=== PATIENT | male | born 1940 | race Caucasian/White ===

== ENCOUNTER 2025-06-08 04:13 | Emergency (ER) | payer MEDICARE, SELFPAY ==
--- NOTE | 2025-06-08 04:15 | ED.GENMED ---
History of Present Illness
General
Chief Complaint: Male Genito-Urinary Symptoms
Time Seen by Provider: 06/08/25 04:15
History of Present Illness
History of Present Illness:
PAST MEDICAL HISTORY AND REVIEW OF OLD RECORDS
- The patient has a history of high blood pressure and prostate cancer.
CHIEF COMPLAINT(S)
Penile pain and difficulty urinating.
HISTORY OF PRESENT ILLNESS
The patient is an 84-year-old male with a known history of prostate cancer, currently presenting with penile pain and difficulty urinating. The patient reports having had two urinary catheters placed. The initial catheter was inserted on December
due to obstructive uropathy related to prostate cancer. The patient experienced increasing difficulty with urination over the years, attributed to treatments for prostate cancer. The first catheter was removed 12 days after its placement,
resulting in significant urinary retention, necessitating a return to the emergency department where a new catheter was inserted. The current catheter, placed in May, has been associated with intermittent pain and an inadequate sense of urinary
drainage. Despite a feeling of bladder fullness, urine is draining into the bag, but not as expected. The patient also reports having experienced blood in the urine when the initial catheter was removed but not currently.
The patients perception of consistent bladder fullness and discomfort suggests possible catheter malfunction or obstruction, potentially due to clot formation or swelling.
The patient has been taking daily aspirin for atrial fibrillation and hypertension. He denies being on any other anticoagulants like apixaban.
PAST MEDICAL AND SURGICAL HISTORY
Prostate cancer with history of associated urinary obstruction.
CHRONIC MEDICAL CONDITIONS SIGNIFICANTLY AFFECTING CARE
- Prostate cancer
- Atrial fibrillation
- Hypertension
MEDICATIONS
- Low-dose aspirin (baby aspirin)
PHYSICAL EXAM
General: Alert, no acute distress. Appears fairly comfortable
Skin: Warm, dry.
Head: Normocephalic, atraumatic.
Neck: Supple, trachea midline.
Eye, Ears, Nose, Mouth, and Throat: Oral mucosa moist.
Cardiovascular: Normal peripheral perfusion, No edema.
Respiratory: Respirations are non-labored.
Gastrointestinal: Abdomen nondistended. Mild suprapubic tenderness
Back: Normal range of motion, Normal alignment.
Musculoskeletal: Normal range of motion, normal strength.
Neurological: Alert and oriented to person, place, time, and situation, No focal neurological deficit observed.
Psychiatric: Cooperative, appropriate mood & affect.
PROBLEM LIST
Acute Problems:
- Penile pain
- Difficulty urinating
Chronic Problems:
- Prostate cancer
- Atrial fibrillation
- Hypertension
PLAN
1. Perform a bladder scan to assess for urinary retention. This showed 336 mL despite having a Balderrama catheter.
2. Replace the current catheter to ensure it is functioning correctly and assess for any obstruction or clotting.
3. Monitor urine output and assess for any recurrent pain or blood in the urine.
DIFFERENTIAL DIAGNOSIS
The Differential Diagnosis includes, in no particular order and is not limited to:
1. Catheter malfunction or obstruction
2. Urinary tract infection
3. Bladder outlet obstruction
4. Hematuria secondary to catheter changes
5. Prostatitis
6. Urethral stricture
7. Bladder stone
8. Clot retention
9. Local trauma or irritation from catheter
10. Progression of prostate cancer
SUMMARY OF ENCOUNTER
The patient, an 84-year-old male with a history of prostate cancer, presented with penile pain and difficulty urinating, which are consistent issues since having two urinary catheters placed. The pain increased with the insertion of the second
catheter, worsening until the initial catheter was removed. There was a concern whether there was a malfunction or obstruction with the catheter as the urine appearance was darker which could be attributed to the patient consuming dark juice. A
bladder scan was planned to check for complications, and it was presumed there might be an issue with the catheter, as catheter issues are common. After examination and discussions, the patient was deemed suitable for discharge. While present in the
emergency department, the patient did not experience pain and did not require hospital admission.
DISPOSITION
Discharge.
ASSESSMENT
The patient likely has penile pain and urinary difficulties due to catheter malfunction or obstruction, potentially related to prostate cancer, which is a common problem with catheters. No acute issues were identified that required hospitalization
at the time of this evaluation.
PLAN
1. Discharge the patient from the emergency department.
2. Advise the patient to monitor urinary output and report any pain, blood in urine, or worsening symptoms.
3. Consider consulting with the patients urologist for ongoing management of prostate cancer and catheter issues.
PATIENT EDUCATION AND COUNSELING
The patient was informed about the potential for catheter malfunction or obstruction and the need to monitor for any changes in symptoms. Information regarding catheters and expected urine drainage was discussed.
FOLLOW-UP INSTRUCTIONS
The patient should follow up with his urologist to discuss the catheter and prostate cancer management further. He was advised to seek medical attention if he experiences persistent pain, difficulty urinating, or other concerning symptoms.
MEDICAL DECISION MAKING
1. Number and Complexity of Problems Addressed: Chronic conditions affecting care: Prostate cancer, which may be related to urinary difficulties. Differential diagnosis includes:
- Catheter malfunction or obstruction
- Bladder outlet obstruction
- Urinary tract infection
- Hematuria due to catheter changes
2. Data:
- Category 1: Clinical information obtained and bladder scan was planned but not detailed in the discharge conversation.
3. Risk:
Prescription medication management ongoing, with low-dose aspirin for other chronic conditions. Given the patients stable condition, discharge was deemed appropriate with close follow-up.
DIAGNOSIS
Penile pain and urinary difficulty possibly due to catheter issues (ICD-10: N39.0), and underlying prostate cancer (ICD-10: C61).
On reassessment at 5:10 AM, the patient feels markedly improved after new Balderrama catheter placed. He will call his son for a ride in the next hour or so.
Phy Exam
Physical Exam
Physical Exam:
See HPI
Course
Orders/Labs/Results
Orders:
Orders
06/08/25 04:27
Balderrama Placement- Treatment ONCE
Reason for insertion: Acute Retention
Vital Signs
Initial and Last Documented VS:
Initial Vital Signs
BP
154/61
06/08/25 04:31
Last Documented Vital Signs
Temp Pulse Resp BP Pulse Ox
36.6 C 58 18 154/61 89
06/08/25 04:32 06/08/25 04:32 06/08/25 04:32 06/08/25 04:32 06/08/25 04:32
*Pulse Oximetry
Patient hypoxic: no
*Critical Care Note
Total Time (30-74mins, 75-104mins- exclusive of procedures): Not Applicable
ED Attending Note
-
Portions of this chart may have been created with voice recognition software.� Occasional wrong word or��sound alike� substitutions may have occurred due to the inherent limitations of voice recognition software.
Discharge Plan
Departure
Patient Disposition: Home (Routine Discharge)
Date of Disposition: 06/08/25
Time of Disposition: 05:11
Patient with high blood pressure during this ER visit?: Yes
Discharge Problem:
Complication, blocked Balderrama catheter
Instructions: How to Care for Your Balderrama Catheter, Male, Urinary Retention (DC)
Activity Restrictions/Additional Instructions:
When we initially did the bladder scan, you had about 336 mL of urine in the bladder despite having a Balderrama catheter. We placed a new catheter and you drained over 300 mL of urine. Follow-up with your urologist return here if worse or other
concerns.
Interventions
Interventions:
*Risk Screen - Suicide Last Done: 06/08/25 04:16
*General Assessment Last Done: 06/08/25 04:16
*Neglect/Abuse Screening Last Done: 06/08/25 04:16
*ED- Fall Risk Assessment Last Done: 06/08/25 04:16
*ED COVID-19 Vaccine History Last Done: 06/08/25 04:16
ED-Male Genitourinary Assessment Last Done: 06/08/25 04:39
Discharge Date and Time
Print Language: VINCENTIAN
[2025-06-08 04:16] VITALS: BMI 30.3
[2025-06-08 04:31] VITALS: BP 154/61
[2025-06-08 04:32] VITALS: BP 154/61
[2025-06-08 05:00] VITALS: BP 119/52
[2025-06-08 06:00] VITALS: BP 128/53
== END 2025-06-08 06:34 | disposition home or self-care (01) ==
LOC: EMR 04:13
PROVIDERS: EMERGENCY PHYSICIAN Emergency Medicine; FAMILY PHYSICIAN Internal Medicine
DX: T83.098A Other mechanical complication of other urinary catheter, initial encounter (principal); Y73.1 Therapeutic (nonsurgical) and rehabilitative gastroenterology and urology devices associated with adverse incidents; Y84.8 Other medical procedures as the cause of abnormal reaction of the patient, or of later complication, without mention of misadventure at the time of the procedure; C61 Malignant neoplasm of prostate; I48.91 Unspecified atrial fibrillation; I10 Essential (primary) hypertension; Z79.82 Long term (current) use of aspirin
CPT/HCPCS: 99283; 51798; 51702

== ENCOUNTER 2025-06-13 09:46 | Emergency (ER) | payer MEDICARE, OTHER, SELFPAY ==
[2025-06-13 09:52] VITALS: BP 161/72
[2025-06-13 09:53] VITALS: BP 161/72
[2025-06-13 10:00] VITALS: BP 162/89
--- NOTE | 2025-06-13 10:05 | ED.GENMED ---
History of Present Illness
General
Chief Complaint: Male Genito-Urinary Symptoms
Source: patient and records
Exam Limitations: none
Time Seen by Provider: 06/13/25 09:53
Nursing documentation reviewed up to this point in time: agreed with
History of Present Illness
History of Present Illness:
84-year-old male with history of hypertension, atrial fibrillation, prostate cancer and recurrent urinary retention presents to the emergency department for evaluation of urinary retention and abdominal pressure. Patient has had recurrent issues
with urinary retention over the past few months requiring Balderrama catheter. He was seen in this emergency room last week for difficulties with his Balderrama catheter and had it exchanged. He was seen by his urologist through [facility] (
[facility]) yesterday to have catheter removed and for a trial of void. He says that he was able to void initially after Balderrama catheter was removed but overnight was not able to pass any urine and this morning having increasing abdominal pressure and
inability to urinate. Came back to the emergency room for evaluation. He was not having any hematuria after catheter was removed yesterday. He denies having any fever, chills, flank pain. He denies any other acute complaints.
Review of Systems
Review of Systems
All Other Systems: ROS reviewed and negative except as documented in HPI and ROS
Constitutional: Denies fever or chills
ABD/GI: Reports abdominal pain; Denies nausea or vomiting
: Reports difficulty voiding; Denies flank pain
Musculoskeletal: Denies neck pain or back pain
Neurological: Denies dizzy or headache
Phy Exam
Physical Exam
Physical Exam:
General: Awake, alert, oriented x3; appears uncomfortable
Head: Normocephalic, atraumatic
Eyes: Conjunctiva normal
Throat: Airway intact, handling secretions
Neck: Trachea midline, supple without meningismus
Lungs: Breathing comfortably no distress, no hypoxia or tachypnea
Heart: Regular rate and rhythm, no murmurs, gallops, or rubs
Abd: Soft, non distended, tender to palpation in the suprapubic region with palpable bladder
Neuro: No gross deficits
Extremities: Warm and well-perfused
Scores
Heart Failure Risk
Heart Failure Risk Score: Not Applicable
Heart Score for Chest Pain Patients
STEMI patient?: Not applicable
Withdrawal Assessment of Alcohol
Withdrawal Assessment Completed?: Not applicable
Course
Orders/Labs/Results
Orders:
Orders
06/13/25 10:04
Lidocaine 2% [Lidocaine Uro-Jet 2%] 1 syringe .ROUTE .STK-MED ONE
06/13/25 10:05
Balderrama Placement- Treatment ONCE
Reason for insertion: Acute Retention
06/13/25 10:48
Urinalysis Reflex To Culture Urgent
Date Specimen was Collected: 06/13/25
Time Specimen was Collected: 10:47
Urine Microscopic Reflex Cult Urgent
Urine Culture Urgent
JACK Source: U
Specimen Description:
Date Specimen was Collected: 06/13/25
Time Specimen was Collected: 10:47
Abnormal Lab Results
06/13/25
10:48
Ur Occult Blood Reflex 2+ A
(Negative)
Leukocyte Esterase Rfl 1+ A
(Negative)
Urine Albumin (Reflex) 1+ A
(Neg - Trace)
Vital Signs
Initial and Last Documented VS:
Initial Vital Signs
Temp Resp BP Pulse Ox
36.8 C 18 161/72 94
06/13/25 09:52 06/13/25 09:52 06/13/25 09:52 06/13/25 09:52
Last Documented Vital Signs
Temp Resp BP Pulse Ox
36.8 C 18 138/61 94
06/13/25 09:52 06/13/25 09:52 06/13/25 11:00 06/13/25 11:15
MDM/Problems Addressed
Differential Diagnosis Includes:
Acute urinary retention�could be related to prostate cancer/outlet obstruction, hematuria, UTI less likely
MDM/Problems Addressed:
84-year-old male presents for evaluation of urinary retention�had catheter removed for trial of void yesterday and initially was urinating but overnight was not able to empty bladder and this morning cannot urinate at all and having increasing
abdominal pain. Vitals and exam as above. Bladder scan showed approximately 500 cc of retained urine. Plan to place Balderrama catheter. Will discuss with patient's urologist--plan to likely discharge with catheter in place.
Catheter placed with approximately 700 cc of urine out. No blood noted. Will send urinalysis.
UA no signs of acute infection. Discussed with urology team at [facility] will plan to start on Flomax, discharge with outpatient urology follow-up. Patient comfortable with this plan he is feeling much better. All questions answered.
Chronic conditions affecting care:
Prostate cancer
Acute Exacerbation and/or Progression of Chronic Illness:
Acutely hypertensive
Acute Exacerbation and/or Progression of Chronic Illness: HTN
*Pulse Oximetry
SaO2: 94
Oxygen Mode of Delivery: Room air
Patient hypoxic: no (94%)
*Critical Care Note
Total Time (30-74mins, 75-104mins- exclusive of procedures): Not Applicable
Data Reviewed
Source: patient and records
Patient Management
Discussion with other providers: Stain Wiper (Discussed with urologist at [facility])
ED Attending Note
-
Portions of this chart may have been created with voice recognition software.� Occasional wrong word or��sound alike� substitutions may have occurred due to the inherent limitations of voice recognition software.
Discharge Plan
Departure
Patient Disposition: Home (Routine Discharge)
Date of Disposition: 06/13/25
Time of Disposition: 12:00
Patient with high blood pressure during this ER visit?: Yes
Discharge Problem:
Acute urinary retention
Instructions: Urinary Retention (DC)
Prescriptions:
New
tamsulosin [Flomax] 0.4 mg capsule
0.4 mg PO DAILY Qty: 30 0RF
Referrals:
Danelle Ruiz DO [Family Provider, Internal Medicine]
Anil Cerda MD [Non-Admitting Privileges, Surgical] - Call in 1-3 days for appt
Activity Restrictions/Additional Instructions:
Thank you for visiting the Emergency Department at [facility].
1. Please schedule a follow up appointment as directed. Call first thing tomorrow morning to make an appointment.
2. If indicated, please take your medications as instructed and indicated on discharge paperwork.
3. If any of your symptoms do not improve, or persist, or become more severe within 6-12 hours, please return to the emergency department for further care.
4. Please return to the emergency department if you develop a headache, neck pain/stiffness, fever greater than 100.4F, chest pain, shortness of breath, persistent nausea, vomiting, slurred speech, difficulty walking, numbness/tingling, weakness,
signs of infection or any other symptoms that are worrisome to you.
Please call [phone] if you have any questions.
Interventions
Interventions:
*Risk Screen - Suicide Last Done: 06/13/25 09:52
*General Assessment Last Done: 06/13/25 09:52
*Neglect/Abuse Screening Last Done: 06/13/25 09:52
*ED- Fall Risk Assessment Last Done: 06/13/25 09:51
ED-Male Genitourinary Assessment Last Done: 06/13/25 11:29
Discharge Date and Time
Print Language: HEBREW
[2025-06-13 10:09] VITALS: BMI 30.7
[2025-06-13 11:00] VITALS: BP 138/61
[2025-06-13 11:16] LABS: Urine Character Clear (Clear)
[2025-06-13 12:12] LABS: Urine Squamous Cell 0-2 /LPF (Few)
[2025-06-13 12:15] LABS: Urine White Cell 21-25 /HPF (0-5)
[2025-06-13 12:16] LABS: Urine Red Blood Cell 16-20 /HPF (0-2)
== END 2025-06-13 12:15 | disposition home or self-care (01) ==
LOC: EMR 09:46
PROVIDERS: EMERGENCY PHYSICIAN Emergency Medicine; FAMILY PHYSICIAN Internal Medicine
DX: R33.9 Retention of urine, unspecified (principal); I10 Essential (primary) hypertension; I48.91 Unspecified atrial fibrillation; C61 Malignant neoplasm of prostate
CPT/HCPCS: 99283; 51702; 81003; 81015; 87086

== ENCOUNTER 2025-06-17 06:31 | Emergency (ER) | payer MEDICARE, OTHER, SELFPAY ==
[2025-06-17 06:35] VITALS: BP 138/68
--- NOTE | 2025-06-17 07:36 | ED.GENMED ---
History of Present Illness
General
Chief Complaint: Male Genito-Urinary Symptoms
Source: patient, records and family
Exam Limitations: none
Time Seen by Provider: 06/17/25 07:15
History of Present Illness
History of Present Illness:
84yoM with a history of hypertension, hyperlipidemia, atrial fibrillation, prostate cancer presenting with his son for evaluation of hematuria. Patient underwent TURP procedure on 05/13/25 at [facility] with Dr. Cerda. He has had
issues with urinary retention since then and has required multiple Balderrama catheters. He was last seen in the ED on 06/13/25 and Balderrama was placed at that time. The catheter was draining well up until last night. He woke up this morning with penile
pain and blood in his Balderrama. He states his catheter has not drained much since it was last emptied at 7pm last night. He had some bloody leakage around the catheter this morning. His only blood thinner is a baby aspirin. He has an appt with his
urologist scheduled in 2 days.
Phy Exam
General Physical Exam
General Presentation: well appearing and no apparent distress
General Skin: warm and dry
General Habitus: normal
General Mental: alert
ENT Exam
ENT Exam: normocephalic
Pulmonary Exam
Pulmonary Exam: no respiratory distress
Gastrointestinal Exam
Gastrointestinal Exam: non tender, soft and non distended
Genitourinary Exam Male
Exam Male: normal external genitalia and other (Approx 300cc of dark red urine in Balderrama bag)
Neurological Exam
Neurological Exam: alert
[place] Coma Scale
Eye Opening: Spontaneous
Verbal Response: Oriented
Motor Response: Obeys Commands
GCS Total Score: 15
Skin Exam
Skin Exam: normal color and warm/dry
Psychiatric Exam
Psychiatric Exam: normal mood/affect
Course
Orders/Labs/Results
Orders:
Orders
06/17/25 07:35
Bladder Scan- Treatment ONCE
06/17/25 08:56
Complete Blood Count/With Diff Urgent
Comprehensive Metabolic Panel Urgent
PTT Urgent
Prothrombin Time Urgent
Abnormal Lab Results
06/17/25
08:56
RBC 4.17 L 10^6/uL
(4.70-6.10)
MCV 94.7 H fL
(80.0-94.0)
MCH 32.9 H pg
(27.0-31.0)
Absolute Lymphs (auto) 1.1 L 10^3/uL
(1.2-3.4)
Absolute Monos (auto) 0.8 H 10^3/uL
(0.1-0.6)
Lymphocytes % 14.7 L %
(20.5-51.1)
Monocytes % 10.7 H %
(1.7-9.3)
Chloride 110 H mmol/L
(98-107)
BUN 23 H mg/dl
(9-20)
Glucose 103 H mg/dl
(70-99)
06/17/25 08:56
06/17/25 08:56
Vital Signs
Initial and Last Documented VS:
Initial Vital Signs
Temp Pulse Resp BP Pulse Ox
98.5 F 61 18 138/68 96
06/17/25 06:35 06/17/25 06:35 06/17/25 06:35 06/17/25 06:35 06/17/25 06:35
Last Documented Vital Signs
Temp Pulse Resp BP Pulse Ox
98.5 F 82 18 132/68 97
06/17/25 06:35 06/17/25 10:00 06/17/25 10:00 06/17/25 10:00 06/17/25 10:00
MDM/Problems Addressed
Differential Diagnosis Includes:
84yoM here with decreased urine output from Balderrama. Catheter placed 4 days ago. Only blood thinner is aspirin. VSS. He is well appearing in no distress. Abdominal exam is benign. Approximately 300cc of dark red urine noted in Balderrama bag. Differential
diagnosis includes: blocked catheter, hematuria, doubt infection as urine culture from 4 days ago was negative for growth
Initial ED plan: Check bladder scan, labs, and will have nursing staff irrigate Balderrama.
*Pulse Oximetry
SaO2: 96
Oxygen Mode of Delivery: Room air
Patient hypoxic: no (96%)
*Critical Care Note
Total Time (30-74mins, 75-104mins- exclusive of procedures): Not Applicable
Update Note
Update Note:
Labs unremarkable including normal hemoglobin and renal function. Nursing staff irrigated catheter and small clots were irrigated. Urine pink tinged after irrigation complete. Upon reassessment, catheter is now draining well and urine in tubing is
clear and yellow. Patient stable for discharge. He has an appt with his urologist in 2 days. ED return precautions reviewed. He was discharged in stable condition.
ED Attending Note
-
Portions of this chart may have been created with voice recognition software.� Occasional wrong word or��sound alike� substitutions may have occurred due to the inherent limitations of voice recognition software.
Discharge Plan
Departure
Patient Disposition: Home (Routine Discharge)
Date of Disposition: 06/17/25
Time of Disposition: 09:58
Patient with high blood pressure during this ER visit?: No
Discharge Problem:
Malfunction of Balderrama catheter, Hematuria
Instructions: How to Care for Your Balderrama Catheter, Male
Prescriptions:
No Action
tamsulosin [Flomax] 0.4 mg capsule
0.4 mg PO DAILY Qty: 30 0RF
Referrals:
Danelle Ruiz DO [Family Provider, Internal Medicine]
Activity Restrictions/Additional Instructions:
Please follow-up with your urologist in 48 hours as previously scheduled. Return to the ER with any worsening symptoms or if your catheter stops draining.
Interventions
Interventions:
*Risk Screen - Suicide Last Done: 06/17/25 06:35
*General Assessment Last Done: 06/17/25 06:35
*Neglect/Abuse Screening Last Done: 06/17/25 06:35
*ED- Fall Risk Assessment Last Done: 06/17/25 10:20
*Nursing Disposition Last Done: 06/17/25 10:20
ED-Male Genitourinary Assessment Last Done: 06/17/25 08:00
Discharge Date and Time
Discharge Date/Time: 06/17/25 10:20
Print Language: BURMESE
[2025-06-17 09:06] LABS: Hematocrit 39.5 % (39.0-52.0); Hemoglobin 13.7 g/dL (13.0-18.0); Mean Corp Hgb Conc. 34.7 g/dL (33.0-37.0); Mean Corpuscular Volume 94.7 fL (80.0-94.0); Nucleated Red Blood Cells % 0 % (-); Platelet Count 284 10^3/uL (130-400); Red Cell Dist. Width 12.8 % (11.5-14.5)
[2025-06-17 09:15] LABS: INR 1.07; PT 14.2 Sec (11.4-14.6)
[2025-06-17 09:16] LABS: APTT 26.7 Sec (23.4-35.0)
[2025-06-17 09:37] LABS: ALT (SGPT) 13 U/L (0-50); AST (SGOT) 22 U/L (17-59); Albumin 4.0 g/dl (3.5-5.0); Alkaline Phosphatase 81 U/L (38-126); Blood Urea Nitrogen 23 mg/dl (9-20); Calcium 9.4 mg/dl (8.4-10.2); Carbon Dioxide 24 mmol/L (22-30); Chloride 110 mmol/L (98-107); Glucose 103 mg/dl (70-99); Potassium 4.2 mmol/L (3.5-5.1); Sodium 142 mmol/L (135-145); Total Protein 6.7 g/dl (6.3-8.2); eGFR 54.51
[2025-06-17 10:00] VITALS: BP 132/68
== END 2025-06-17 10:20 | disposition home or self-care (01) ==
LOC: EMR 06:31
PROVIDERS: Physician Assistant; EMERGENCY PHYSICIAN Emergency Medicine; FAMILY PHYSICIAN Internal Medicine
DX: T83.091A Other mechanical complication of indwelling urethral catheter, initial encounter (principal); R31.9 Hematuria, unspecified; N48.89 Other specified disorders of penis; Y73.2 Prosthetic and other implants, materials and accessory gastroenterology and urology devices associated with adverse incidents; I48.91 Unspecified atrial fibrillation; I10 Essential (primary) hypertension; E78.5 Hyperlipidemia, unspecified; Z79.82 Long term (current) use of aspirin; Z85.46 Personal history of malignant neoplasm of prostate
CPT/HCPCS: 99283; 80053; 85025; 85610; 85730

== ENCOUNTER → 2025-07-06 11:58 | Outpatient (REF) | payer MEDICARE, OTHER, SELFPAY ==
[2025-07-06 15:18] LABS: Urine Character Bloody (Clear)
[2025-07-06 15:24] LABS: Urine Red Blood Cell 90-100 /HPF (0-2); Urine Squamous Cell 0-2 /LPF (Few); Urine White Cell 0-2 /HPF (0-5)
== END ==
LOC: HWLAB 11:58
PROVIDERS: ATTENDING PHYSICIAN Internal Medicine
DX: R10.84 Generalized abdominal pain (principal)
CPT/HCPCS: 81003; 81015; 87086